=== PATIENT | male | born 1965 | race Caucasian/White ===

== ENCOUNTER 2016-04-24 11:56 | Emergency (ER) | payer BC, MEDICARE ==
--- NOTE | 2016-04-24 12:33 | Emergency Department Record ---
History of Present Illness - General Chief Complaint: Abdominal Pain Stated Complaint: ABDOMINAL PAIN/RECTAL BLEEDING Time Seen by Provider: 04/24/16 12:32 Source: Patient Mode of Arrival: Ambulatory Limitations: No limitations - History of Present Illness Initial Comments: pt c/o abd cramping, rectal bleeding and black tarry stools. this has been going on for months and is getting worse. pt has been seen by dr south and had a colonoscopy and egd last fall. pt states he continues to worsen. MD Complaint: Abdominal pain Onset/Timin -: Month(s) Location: Diffuse Radiation: L flank, R flank Severity: Moderate Quality: Cramping, Sharp, Other Consistency: Constant Improves With: Nothing Worsens With: Nothing Associated Symptoms: Constipation, Diarrhea, Melena - Related Data Home Medications Medication Instructions Recorded Confirmed Last Taken Fluoxetine HCl [Fluoxetine HCl] 40 mg PO DAILY 04/24/16 04/24/16 Unknown Gabapentin [Gabapentin] 300 mg PO TID 04/24/16 04/24/16 Unknown Mesalamine [Delzicol] 800 mg PO TID 04/24/16 04/24/16 Unknown Montelukast Sodium [Singulair] 10 mg PO DAILY 04/24/16 04/24/16 Unknown Venlafaxine HCl [Effexor Xr] 75 mg PO BID 04/24/16 04/24/16 Unknown Allergies Allergy/AdvReac Type Severity Reaction Status Date / Time Iodinated Contrast Media - Allergy Mild unknown Verified 11/17/15 15:37 Oral and Travel Screening - Travel/Exposure Within Last 30 Days Have you traveled within the last 30 days?: No Review of Systems Reviewed: No additional complaints except as noted below Constitutional: Reports: As per HPI. Denies: Chills, Fever, Malaise, Night sweats, Weakness, Weight change Eyes: Reports: As per HPI. Denies: Eye discharge, Eye pain, Photophobia, Vision change ENT: Reports: As per HPI. Denies: Congestion, Dental pain, Ear pain, Epistaxis , Hearing loss, Throat pain Respiratory: Reports: As per HPI. Denies: Cough, Dyspnea, Hemoptysis, Stridor, Wheezes Cardiovascular: Reports: As per HPI. Denies: Arrhythmia, Chest pain, Dyspnea on exertion, Edema, Murmurs, Orthopnea, Palpitations, Paroxysmal nocturnal dyspnea, Rheumatic Fever, Syncope Endocrine: Reports: As per HPI. Denies: Fatigue, Heat or cold intolerance, Polydipsia, Polyuria Gastrointestinal: Reports: As per HPI. Denies: Abdominal pain, Constipation, Diarrhea, Hematemesis, Hematochezia, Melena, Nausea, Vomiting Genitourinary: Reports: As per HPI. Denies: Dysuria, Frequency, Hematuria, Incontinence, Retention, Testicular pain, Testicular mass, Urgency Musculoskeletal: Reports: As per HPI. Denies: Arthralgia, Back pain, Gout, Joint swelling, Myalgia, Neck pain Skin: Reports: As per HPI. Denies: Bruising, Change in color, Change in hair/ nails, Lesions, Pruritus, Rash Neurological: Reports: As per HPI. Denies: Abnormal gait, Confusion, Headache, Numbness, Paresthesias, Seizure, Tingling, Tremors, Vertigo, Weakness Psychiatric: Reports: As per HPI. Denies: Anxiety, Auditory hallucinations, Depression, Homicidal thoughts, Suicidal thoughts, Visual hallucinations Hematological/Lymphatic: Reports: As per HPI. Denies: Anemia, Blood Clots, Easy bleeding, Easy bruising, Swollen glands Past Medical History - SOCIAL HISTORY Smoking Status: Former smoker - RESPIRATORY Hx Respiratory Disorders: No - CARDIOVASCULAR Hx Cardio Disorders: Yes Hx Deep Vein Thrombosis: Yes (LLE after sx 2007) Hx Hypertension: Yes - NEURO Hx Neuro Disorders: No - GI Hx GI Disorders: Yes Hx Abdominal Pain: Yes (Right side -> back) Hx Reflux: Yes Hx Rectal Bleeding: Yes Hx of Polyps: Yes Comment:: diverticulosis - Hx Genitourinary Disorders: Yes Hx Kidney Stones: Yes - ENDOCRINE Hx Endocrine Disorders: No - MUSCULOSKELETAL Hx Musculoskeletal Disorders: Yes Hx Arthritis: Yes (psoriatic) Hx Fibromyalgia: Yes Comment:: brusitis & tendonitis - PSYCH Hx Psych Problems: Yes Hx Anxiety: Yes Hx Depression: Yes - HEMATOLOGY/ONCOLOGY Hx Hematology/Oncology Disorders: No Family Medical History Any Significant Family History?: Yes Hx Cancer: Grandparents *Cancer Comment: colon Hx Heart Disease: Grandparents *Heart Comment: [place] Physical Exam - General General Appearance: Alert, Oriented x3, Cooperative, Moderate distress - Head Head exam: Normal inspection - Eye Eye exam: Normal appearance, PERRL, EOMI Pupils: Normal accommodation - ENT ENT exam: Normal exam, Mucous membranes moist, Normal external ear exam, Normal orophraynx Ear exam: Normal external inspection. negative: External canal tenderness Nasal Exam: Normal inspection. negative: Discharge, Sinus tenderness Mouth exam: Normal external inspection, Tongue normal Teeth exam: Normal inspection. negative: Dental caries Throat exam: Normal inspection. negative: Tonsillar erythema, Tonsillar exudate - Neck Neck exam: Normal inspection, Full ROM. negative: Tenderness - Respiratory Respiratory exam: Normal lung sounds bilaterally. negative: Respiratory distress - Cardiovascular Cardiovascular Exam: Regular rate, Normal rhythm, Normal heart sounds - GI/Abdominal GI/Abdominal exam: Soft, Normal bowel sounds, Tenderness - Rectal Rectal exam: Heme (+) stool - exam: Deferred - Extremities Extremities exam: Normal inspection, Full ROM, Normal capillary refill. negative: Tenderness - Back Back exam: Reports: Normal inspection, Full ROM. Denies: Muscle spasm, Rash noted, Tenderness - Neurological Neurological exam: Alert, Normal gait, Oriented X3, Reflexes normal - Psychiatric Psychiatric exam: Normal affect, Normal mood - Skin Skin exam: Dry, Intact, Normal color, Warm Course Vital Signs 04/24/16 12:11 Temperature 98.1 F Pulse Rate 97 H Respiratory 20 Rate Blood Pressure 140/97 Pulse Ox 99 - Reevaluation(s) Reevaluation #1: 04/24/16 15:49 d/w dr south's fellow and w dr hutchison who accepted the pt. pts hgb in nov was 14.6 and now is 10.1 Medical Decision Making - Lab Data Result diagrams: 04/24/16 12:55 04/24/16 12:55 Disposition Disposition: Transfer Clinical Impression: Gastrointestinal Hemorrhage Qualifiers: GI bleed type/associated pathology: melena Qualified Code(s): K92.1 - Melena Disposition: Acute Care Hospital Transfer Transfer To: [facility] Reason For Transfer: gi bleed Accepting Physician: dr hutchison Time Discussed w/Accepting Physician: 15:30 Forms: Patient Portal Access
[2016-04-24] MEDS ORDERED: 0.9 % SODIUM CHLORIDE 1,000 ML BAG IV ONE (12:41)
[2016-04-24] MEDS ORDERED: DICYCLOMINE HCL 10 MG/ML AMPUL IM ONE (12:41)
[2016-04-24 13:07] LABS: BASO % 0.4 % (0-6); EOS % 2.6 % (0-6); GRAN % 42.1 % (47-80); HEMATOCRIT 32.7 % (42.0-52.0); HEMOGLOBIN 10.1 gm/dl (14.0-18.0); LYMPH % 45.3 % (16-45); MEAN CELL VOLUME 88.4 fl (81-97); MEAN CORPUSCULAR HGB CONC 30.9 g/dl (32-36); MEAN PLATELET VOLUME 7.8 fl (7.4-10.4); MONO % 9.6 % (0-9); PLATELET COUNT 367 K/uL (130-400); RED CELL DISTRIBUTION WIDTH 12.7 % (11.5-14.5)
[2016-04-24 13:14] LABS: MEAN CORPUSCULAR HEMOGLOBIN 27.2 pg (27-33)
[2016-04-24 13:21] LABS: ALBUMIN 3.5 gm/dL (3.5-5.0); ALKALINE PHOSPHATASE 82 U/L (38-126); ALT/SGPT 33 U/L (21-72); ANION GAP 10.6 (7-16); AST/SGOT 17 U/L (17-59); BILIRUBIN,TOTAL 0.27 mg/dL (0.2-1.3); BLOOD UREA NITROGEN 6 mg/dL (9-20); CARBON DIOXIDE 27.4 mmol/L (22-30); CREATININE 0.7 mg/dL (0.66-1.25); EST GLOMERULAR FILTRATION RATE > 60 ml/min; GLUCOSE,RANDOM 87 mg/dL (70-110); LIPASE 72 U/L (23-300); TOTAL PROTEIN 6.9 gm/dL (6.3-8.2)
[2016-04-24 15:23] LABS: URINE APPEARANCE CLEAR; URINE BILIRUBIN NEGATIVE (NEGATIVE); URINE BLOOD NEGATIVE (NEGATIVE); URINE COLOR YELLOW; URINE GLUCOSE (UA) NEGATIVE (NEGATIVE); URINE KETONE NEGATIVE (NEGATIVE); URINE LEUKOCYTE ESTERASE NEGATIVE (NEGATIVE); URINE NITRITE NEGATIVE (NEGATIVE); URINE PROTEIN NEGATIVE (NEGATIVE); URINE UROBILINOGEN 0.2 E.U./dL (0.20 - 1.00)
[2016-04-24] MEDS ORDERED: PROMETHAZINE HCL 25 MG/ML VIAL IVP ONE (15:42)
[2016-04-24] MEDS ORDERED: HYDROMORPHONE HCL 1 MG/ML CPJ IVP ONE (15:42)
== END 2016-04-24 18:29 | disposition short-term general hospital (02) ==
LOC: ER 11:56
DX: K92.1 Melena (principal); R10.32 Left lower quadrant pain; R10.31 Right lower quadrant pain
CPT/HCPCS: 99285 ×2; 96374; 96372; 96375; 96361; 83690; 85025; 80076; 80048; 81003; 74176; J1170; J2550; J7030

== ENCOUNTER 2016-08-12 16:28 | Emergency (ER) | payer BC, MEDICARE ==
[2016-08-12] MEDS ORDERED: MORPHINE SULFATE 5 MG/ML PFS IVP ONE (16:33)
[2016-08-12] MEDS ORDERED: ONDANSETRON HCL IV 4 MG/2 ML VIAL IVP ONE (16:35)
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
[2016-08-12] MEDS ORDERED: 0.9 % SODIUM CHLORIDE 1,000 ML BAG IV ONE (17:14)
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
[2016-08-12] MEDS ORDERED: BACITRACIN 14 GM TUBE TOP ONE (17:26)
== END 2016-08-12 17:50 | disposition short-term general hospital (02) ==
LOC: ER 16:28
DX: T20.34XA Burn of third degree of nose (septum), initial encounter (principal); T22.212A Burn of second degree of left forearm, initial encounter; T22.211A Burn of second degree of right forearm, initial encounter; T20.29XA Burn of second degree of multiple sites of head, face, and neck, initial encounter; T21.21XA Burn of second degree of chest wall, initial encounter; Y93.G2 Activity, grilling and smoking food; Y92.007 Garden or yard of unspecified non-institutional (private) residence as the place of occurrence of the external cause
CPT/HCPCS: 99285 ×2; 96374; 96375; J2405; J2270; J7030

== ENCOUNTER 2017-10-30 21:41 | Emergency (ER) | payer BC, MEDICARE ==
[2017-10-30] MEDS ORDERED: METHYLPREDNISOLONE PF 125MG/VIAL IVP ONE (21:47)
[2017-10-30] MEDS ORDERED: FAMOTIDINE IV 20 MG/2 ML VIAL IVP ONE (21:47)
--- NOTE | 2017-10-30 22:02 | Emergency Department Record ---
History of Present Illness - General Chief complaint: Bite Insect/other Stated complaint: BEE STING Time Seen by Provider: 10/30/17 21:57 Source: Patient Mode of Arrival: Ambulatory Limitations: No limitations - History of Present Illness Initial comments: 52 yo male presents to ED for evaluation of (2) bee stings to the left lateral lower extremity that occurred approximately 1 hour ago. Patient reports localized redness and swelling to the area, reports mild swelling of the hands at this time. Patient did take Benadryl [employer], however as his symptoms worsened, came to ED for evaluation. Patient denies wheezing or difficulty swallowing, denies lip or tongue swelling. Patient denies previous anaphylactic reactions to bee stings as well. Patient does report a history of arthritis and crohn's. MD complaint: Insect bite/sting Onset/Timin -: Hour(s) Location: LLE Severity: Moderate Consistency: Constant Improves with: None Worsens with: None Context: Witnessed insect bite Associated symptoms: Denies other symptoms Treatments Prior to Arrival: Benadryl - Related Data Previous Rx's Medication Instructions Recorded Famotidine [Pepcid] 40 mg PO DAILY #5 tablet 10/30/17 Prednisone [Prednisone 20Mg] 20 mg PO TID #12 tab 10/30/17 Allergies Allergy/AdvReac Type Severity Reaction Status Date / Time Iodinated Contrast- Oral and Allergy Mild unknown Unverified 09/28/17 12:34 IV Dye Review of Systems Constitutional: Denies: Chills, Fever, Malaise, Night sweats Eyes: Denies: Eye discharge, Eye pain ENT: Denies: Congestion, Ear pain, Epistaxis Respiratory: Denies: Cough, Dyspnea Cardiovascular: Denies: Chest pain, Dyspnea on exertion Endocrine: Denies: Fatigue, Heat or cold intolerance Gastrointestinal: Denies: Abdominal pain, Nausea, Vomiting Genitourinary: Denies: Incontinence, Retention Musculoskeletal: Denies: Arthralgia, Back pain, Gout, Joint swelling Skin: Reports: Pruritus, Rash. Denies: Bruising, Change in color, Change in hair/nails Neurological: Denies: Abnormal gait, Confusion, Headache, Seizure Psychiatric: Denies: Anxiety Hematological/Lymphatic: Denies: Anemia, Blood Clots Past Medical History - SOCIAL HISTORY Smoking Status: Former smoker Drug Use: None - RESPIRATORY Hx Respiratory Disorders: No - CARDIOVASCULAR Hx Cardio Disorders: Yes Hx Deep Vein Thrombosis: Yes (LLE after sx 2007) Hx Hypertension: Yes - NEURO Hx Neuro Disorders: No - GI Hx GI Disorders: Yes Hx Abdominal Pain: Yes (Right side -> back) Hx Crohn's Disease: Yes Hx Reflux: Yes Hx Rectal Bleeding: Yes Hx of Polyps: Yes Comment:: diverticulosis - Hx Genitourinary Disorders: Yes Hx Kidney Stones: Yes - ENDOCRINE Hx Endocrine Disorders: No - MUSCULOSKELETAL Hx Musculoskeletal Disorders: Yes Hx Arthritis: Yes (psoriatic) Hx Fibromyalgia: Yes Comment:: brusitis & tendonitis - PSYCH Hx Psych Problems: Yes Hx Anxiety: Yes Hx Depression: Yes - HEMATOLOGY/ONCOLOGY Hx Hematology/Oncology Disorders: No Family Medical History Hx Cancer: Grandparents *Cancer Comment: colon Hx Heart Disease: Grandparents *Heart Comment: [place] Physical Exam - General General Appearance: Alert, Oriented x3, Cooperative, Mild distress Limitations: No limitations - Head Head exam: Atraumatic, Normocephalic, Normal inspection Head exam detail: negative: Abrasion, Contusion, Cummings's sign, General tenderness, Hematoma, Laceration - Eye Eye exam: Normal appearance. negative: Conjunctival injection, Periorbital swelling, Periorbital tenderness, Scleral icterus - ENT Ear exam: negative: Auricular hematoma, Auricular trauma Nasal Exam: negative: Active bleeding, Discharge, Dried blood, Foreign body Mouth exam: Tongue normal. negative: Drooling, Laceration, Muffled voice, Tongue elevation Throat exam: Other (No uvula edema present on examination.). negative: Tonsillar erythema, Tonsillomegaly, Tonsillar exudate - Neck Neck exam: Normal inspection. negative: Meningismus, Tenderness - Respiratory Respiratory exam: Normal lung sounds bilaterally. negative: Rales, Respiratory distress, Rhonchi, Stridor - Cardiovascular Cardiovascular Exam: Regular rate, Normal rhythm, Normal heart sounds - GI/Abdominal GI/Abdominal exam: Soft. negative: Hypoactive bowel sounds, Rebound, Tenderness - Rectal Rectal exam: Deferred - exam: Deferred - Extremities Extremities exam: Tenderness, Other (Localized erythema and warmth c/w local reaction to the left lateral lower extremity.). negative: Calf tenderness, Pedal edema - Back Back exam: Denies: CVA tenderness (R), CVA tenderness (L) - Neurological Neurological exam: Alert, Normal gait, Oriented X3 - Psychiatric Psychiatric exam: Normal affect, Normal mood - Skin Skin exam: negative: Abrasion Type of lesion: negative: abrasion Course - Reevaluation(s) Reevaluation #1: 10/30/17 22:37 Patient reassessed, erythema to the LLE is much improved. Patient denies SOB or throat swelling, will continue to observe in ED. Reevaluation #2: 10/30/17 23:17 Patient was reassessed, reports that his symptoms continue to improve. Patient appears stable for discharge at this time with instructions to follow- up with his PCP in 1-3 days. Pepcid and Prednisone sent to pharmacy to start tomorrow. Disposition Disposition: Discharge Clinical Impression: Bee sting reaction Qualifiers: Encounter type: initial encounter Injury intent: accidental or unintentional Qualified Code(s): T63.441A - Toxic effect of venom of bees, accidental ( unintentional), initial encounter Disposition: Home, Self-Care Condition: (2) Stable Instructions: Insect Bite or Sting (ED) Additional Instructions: Return to ED if your symptoms worsen or if you have any concerns. Prednisone and Pepcid as directed. Follow-up with your family doctor in 1-3 days as directed. Prescriptions: Famotidine [Pepcid] 40 mg PO DAILY #5 tablet Prednisone [Prednisone 20Mg] 20 mg PO TID #12 tab Forms: Patient Portal Access Time of Disposition: 23:19 Quality - Quality Measures Quality Measures: N/A - Blood Pressure Screening Does Patient Have Any of the Following: No Blood Pressure Classification: Hypertensive Reading Systolic Measurement: 137 Diastolic Measurement: 98 Screening for High Blood Pressure: < First Hypertensive BP, F/U Documented > [ [id number]] First Hypertensive Follow-up Interventions: Referral to alternative/primary care provider.
== END 2017-10-30 23:24 | disposition home or self-care (01) ==
LOC: ER 21:41
DX: T63.441A Toxic effect of venom of bees, accidental (unintentional), initial encounter (principal); R22.31 Localized swelling, mass and lump, right upper limb; I10 Essential (primary) hypertension; Z87.891 Personal history of nicotine dependence
CPT/HCPCS: 99284 ×2; 96374; 96375; J3490; J2930

== ENCOUNTER 2018-06-07 10:33 | Day surgery (SDC) | payer BC, MEDICARE ==
[2018-06-07] MEDS ORDERED: FENTANYL PF 100MCG/2ML VIAL IV ONE (10:34)
[2018-06-07] MEDS ORDERED: PROPOFOL 10 MG/ML VIAL IV ONE (10:34)
[2018-06-07] MEDS ORDERED: LIDOCAINE 2% MDV (20MG/ML) 20ML VIAL IV ONE (10:34)
--- NOTE | 2018-06-10 08:40 | Operative Note ---
DATE OF SURGERY: 06/07/2018 SURGEON: Jose Mathur MD OPERATION: COLONOSCOPY. INDICATIONS: This is a 53-year-old male with history of ulcerative colitis who has had persistent symptoms with rectal bleeding and presented for colonoscopy. POSTOPERATIVE DIAGNOSES: 1. Severe ulcerative colitis with multiple pseudopolyps throughout the entire colon. 2. Normal terminal ileum. 3. Grade 1 internal hemorrhoids. ANESTHESIA: Sedation is per Anesthesia. Pulse oximetry was monitored throughout the procedure to maintain O2 saturation of 90% or greater. Supplemental oxygen was administered via nasal cannula. Cardiac and vital signs were monitored throughout the duration of the procedure, and they were stable. The procedure of colonoscopy and risks and alternatives of the procedure, including the risk of bleeding and perforation, among others, were explained to the patient who voiced understanding and agreed to have the procedure done. Physical examination was performed, and the patient was found stable for sedation. PROCEDURE: The patient was placed in the left lateral position. Sedation was initiated. A digital rectal exam was performed and showed some mild external hemorrhoids with no palpable rectal masses. An Olympus PCF-180AL colonoscope was then inserted CC: Dale Esqueda MD MTDD
--- NOTE | 2018-06-24 09:30 | Operative Note ---
ADDENDUM DATE OF SURGERY: 06/07/2018 PROCEDURE: The patient was placed in the left lateral position. Sedation was initiated. A digital rectal exam was performed and showed small external hemorrhoids with no palpable rectal masses. An Olympus PCF-180AL colonoscope was then inserted into the rectum under direct visualization. It was advanced to the cecum without any difficulty. The colonic mucosa was carefully examined upon introduction of the colonoscope. There were diffuse multiple pseudomembranes with bleeding in the sigmoid, descending, transverse, and ascending colon. The colonic mucosa was friable and some of the pseudopolyps were membranous in nature almost completely occupying the lumen of the colon. The ileocecal valve was intubated and terminal ileal mucosa was normal up to 10 cm. The colonoscope was then withdrawn while carefully examining the colonic mucosal surfaces. No other lesions were noted. Random biopsies were obtained. In the rectum, retroflexion revealed no other lesions. The colonoscope was then withdrawn and the procedure was terminated. The patient tolerated the procedure well without any immediate complications. The patient remained with stable vital signs and was transferred to the recovery room. RECOMMENDATIONS: Given the severe disease, multiple pseudopolyps with bleeding, the patient has failed medical therapy, and I will refer him to the surgeons for further management. I will see him back for repeat colonoscopy in about 2 years. Thank you for allowing me to participate in the care of your patient. CC: DO Handy Pierson
== END 2018-06-07 12:40 | disposition home or self-care (01) ==
LOC: HOP 10:33
PROVIDERS: ATTEND Internal Medicine Gastroenterology
DX: K62.5 Hemorrhage of anus and rectum (principal); Z87.19 Personal history of other diseases of the digestive system; K52.9 Noninfective gastroenteritis and colitis, unspecified; M79.7 Fibromyalgia